=== PATIENT | female | born 1960 | race Caucasian/White ===

== ENCOUNTER 2019-04-22 11:06 | Observation (INO) | payer BC ==
[2019-04-23 10:13] VITALS: BP 89/47; TEMP 97.9; O2SAT 97
== END 2019-04-23 11:30 | disposition home or self-care (01) ==
LOC: ER 11:06 → MS 14:54
PROVIDERS: ADMIT Nurse Practitioner Family; ATTEND Nurse Practitioner Acute Care
DX: I95.1 Orthostatic hypotension (principal); R71.8 Other abnormality of red blood cells; E53.8 Deficiency of other specified B group vitamins; E86.0 Dehydration; E87.8 Other disorders of electrolyte and fluid balance, not elsewhere classified; N39.0 Urinary tract infection, site not specified; B96.89 Other specified bacterial agents as the cause of diseases classified elsewhere; F17.210 Nicotine dependence, cigarettes, uncomplicated; E87.1 Hypo-osmolality and hyponatremia; E87.6 Hypokalemia; E83.42 Hypomagnesemia; I27.20 Pulmonary hypertension, unspecified; I10 Essential (primary) hypertension; F32.9 Major depressive disorder, single episode, unspecified; Z79.899 Other long term (current) drug therapy
CPT/HCPCS: 96361; 96366 ×2; 96367; 96365; 96368; 96375; 96376; 96372; J7611; J0696 ×2; J3420; J1100; J2405; J7040; J7030 ×3; J3411; J1650; J3475; J3480; J7050 ×2; 80048; 80053; 87086; 36415 ×5; 82746; 87077; 87186; 81001; 80076; 85025 ×2; 87040 ×2; 83735; 84443; 82607; 84484; 83605; 82533; 71046; 94640; 99406; 99285; G0378

== ENCOUNTER 2019-05-01 15:31 | Inpatient (IN) | payer BC ==
[2019-05-01] MEDS ORDERED: SODIUM CHLORIDE 0.9% 1000ML 1,000 ML IVS ONE ×2 (15:39→17:15)
--- NOTE | 2019-05-01 16:13 | RAD ---
EXAM DESCRIPTION: Chest,1 View CLINICAL HISTORY: hypotension COMPARISON: April 22, 2019 FINDINGS: The cardiomediastinal silhouette is unremarkable. There is no airspace consolidation or pleural effusion. The bronchovascular markings are within normal limits, and the lungs are not hyperinflated. There is no pneumothorax or acute fracture. Postoperative changes in the left clavicle. IMPRESSION: Negative exam. Electronically signed by: Henry Sanders MD 05/01/2019 4:10 PM CDT
--- NOTE | 2019-05-01 16:17 | CT ---
EXAM DESCRIPTION: Head CLINICAL HISTORY: 58 years Female, hypotension COMPARISON: None. TECHNIQUE: Axial images are obtained from the skull base to the vertex without intravenous contrast with images viewed on bone and brain windows. Coronal and sagittal reformations were provided. This exam was performed according to our departmental dose-optimization program, which includes automated exposure control, adjustment of the mA and/or kV according to patient size and/or use of iterative reconstruction technique. FINDINGS: Brain Parenchyma, ventricles, meninges, and extra-axial spaces: Moderate frontal predominant cerebral atrophy. Mild white matter hypodensities in both cerebral hemispheres are nonspecific but likely relate to ischemic small vessel disease. No acute intracranial hemorrhage. No abnormal extra-axial fluid collections are present. No mass effect or herniation present. Vascular Structures: No hyperdense arteries or veins. Calvarium, paranasal sinuses, mastoids, and orbits: Calvarium is intact. Mild inflammation in the inferior maxillary sinuses. Remaining paranasal sinuses and mastoid vessels are clear. Orbits are unremarkable. IMPRESSION: 1. No acute intracranial abnormality. 2. Senescent changes. 3. Mild maxillary sinus disease. Electronically signed by: Joshua Caruso MD 05/01/2019 4:15 PM CDT
[2019-05-01] MEDS ORDERED: MAGNESIUM SULFATE PREMIX 4GM 4 GM in PREMIX BAG 1 BAG IVPB ONE (16:18)
[2019-05-01] MEDS ORDERED: POTASSIUM CHLORIDE ELIXIR 20 MEQ/15 ML UD PO ONE (16:18)
[2019-05-01] MEDS ORDERED: MAGNESIUM SULFATE PREMIX 4GM 50 ML IVPB ONE (16:27)
--- NOTE | 2019-05-01 18:15 | CT ---
EXAM DESCRIPTION: CTA Chest CLINICAL HISTORY: 58 years Female elevated ddimer, persistent hypotension COMPARISON: None TECHNIQUE: Images were obtained in axial, sagittal, and coronal planes. Intravenous contrast was administered. 3-D MIP imaging was performed in axial, sagittal, and coronal planes. Coronal oblique images also submitted. This exam was performed according to our departmental dose-optimization program which includes use of Automated Exposure Control, adjustment of the mA and/or kV according to patient size and/or use of iterative reconstruction technique. FINDINGS: No filling defects pulmonary arteries bilaterally. No aortic dissection or dilatation. No adenopathy. No pericardial or pleural effusions bilaterally. No lung parenchymal infiltrates or nodules seen. No pneumothorax. No acute osseous abnormality. Mild dextroscoliosis thoracic spine. Decreased attenuation involving the liver consistent with marked fatty change. Electrodes subcutaneous fat posterior lateral left hemithorax. IMPRESSION: No evidence for pulmonary embolus. No aortic dissection or dilatation. No infiltrates bilaterally. Marked fatty change involving. Electronically signed by: Kathy Singh MD 05/01/2019 6:12 PM CDT
[2019-05-01] MEDS ORDERED: DEXAMETHASONE 4 MG TAB PO ONE (18:16)
[2019-05-01] MEDS ORDERED: CIPROFLOXACIN 500 MG TAB PO ONE (18:17)
--- NOTE | 2019-05-01 18:22 | ED.PDOC ---
History of Present Illness - General Chief Complaint: General Stated Complaint: LOW BP AT MD OFFICE AND PASSED OUT Time Seen by Provider: 05/01/19 15:37 Source: patient Exam Limitations: no limitations - History of Present Illness Initial Comments: the patient is a 58-year-old female presenting to the emergency room secondary to a syncopal episode at her primary care doctor's office. The patient has been having gastroenteritis symptoms of diarrhea and some intermittent nausea and vomiting for the past 4 days. She was recently admitted for hypotension and did have a random cortisol that came back as low during that visit. She is not having any fever. She feels weak and tired and dizzy. She didn't pass out in the primary care doctor's office. Blood pressures over there were 70s over palp. Blood pressures over here were 70s over 40s upon arrival. The patient has not gone up or had a diarrhea episode since her arrival here. No fever. She also has a history of a macrocytosis of uncertain origin. Timing/Duration: 1 week Severity: severe Improving Factors: nothing Worsening Factors: nothing Associated Symptoms: diaphoresis, loss of appetite, malaise, syncope, weakness Allergies/Adverse Reactions: Allergies NO KNOWN ALLERGY Allergy (Verified 05/01/19 16:02) Home Medications: Ambulatory Orders Citalopram Hydrobromide [Citalopram] 20 mg PO DAILY 04/22/19 Review of Systems - Review of Systems Constitutional: States: malaise, weakness EENTM: States: no symptoms reported Respiratory: States: no symptoms reported Cardiology: States: syncope Gastrointestinal/Abdominal: States: diarrhea, nausea, vomiting Genitourinary: States: no symptoms reported Musculoskeletal: States: no symptoms reported Skin: States: no symptoms reported Neurological: States: tremors Endocrine: States: no symptoms reported All other Systems: No Change from Baseline Past Medical History (General) - Patient Medical History Hx Seizures: No Hx Stroke: No Hx Asthma: No Hx of COPD: Yes Hx Cardiac Disorders: No Hx Congestive Heart Failure: No Hx Pacemaker: No Hx Hypertension: Yes - TAKEN OFF MEDICATIONS FOR HBP Hx Diabetes: No Hx Cancer: No Hx Hepatitis C: No Hx MRSA: No - Vaccination History Hx Tetanus, Diphtheria Vaccination: No Hx Influenza Vaccination: No Hx Pneumococcal Vaccination: No Immunizations Up to Date: No - Social History Hx Tobacco Use: Yes Hx Alcohol Use: Yes - OCC Hx Substance Use: No Hx Substance Use Treatment: No Hx Depression: Yes Hx Physical Abuse: No Hx Emotional Abuse: No - Female History Patient is a Female of Child Bearing Age (10 -59 yrs old): No Family Medical History - Family History Mother Family History: No Known Living Status: Still Living Physical Exam - Physical Exam General Appearance: Alert, Ill Appearing, Other - pale Eye Exam: bilateral normal Ears, Nose, Throat: hearing grossly normal, normal ENT inspection, normal pharynx Neck: full range of motion, supple Respiratory: lungs clear, normal breath sounds, no respiratory distress, no accessory muscle use Cardiovascular/Chest: normal peripheral pulses, no edema, tachycardia - mild Peripheral Pulses: radial,right: 2+, radial,left: 2+, dorsalis pedis,right: 2+, dorsalis pedis,left: 2+ Gastrointestinal/Abdominal: non tender, soft Rectal Exam: deferred Back Exam: no CVA tenderness, no vertebral tenderness Extremity: normal range of motion, non-tender, normal inspection, no pedal edema, normal capillary refill 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 Progress - Progress Progress: 05/01/19 18:23 the patient is a 58-year-old female with a syncopal episode and hypotension at her primary care doctor's office after a week's worth of what appears to be a gastroenteritis. The patient's blood pressures have improved with 2 L of IV fluids. There is some question of adrenal insufficiency with this patient so she is given 4 mg of oral dexamethasone. TSH is elevated significantly since last week and will bear following. Her free T4 levels were within normal limits. Magnesium level was markedly low at 1. She has been given 4 g of magnesium sulfate and this will need repeating. Additionally she does have hypokalemia which she has had a supplemental dose of here and this will wire following as well. She needs a repeat urinalysis to confirm clearance of the urinary tract infection. She also has a C. difficile studythat she needs to collect on her stool for the diarrhea. For now she is receiving 1 dose of oral ciprofloxacin for the gastroenteritis. She may benefit in the short- term from acid reducing medications. Admit for continuation of care for hypotension, syncope, gastroenteritis, hypomagnesemia, hypokalemia. Critical care time spent on this patient is 40 minutes excluding otherwise billable procedures. - Results/Orders Results/Orders: chest x-ray shows mild cardiomegaly. Head CT is negative for acute pathology. CTA of the chest failed to demonstrate any acute pathology. Laboratory Tests 05/01/19 05/01/19 05/01/19 14:54 14:54 14:54 WBC 14.2 H RBC 2.91 L Hgb 12.3 Hct 36.5 MCV 125.4 H MCH 42.3 H MCHC 33.7 RDW 16.8 H Plt Count 336 MPV 8.3 Absolute Neuts (auto) 12.00 H Absolute Lymphs (auto) 1.50 Absolute Monos (auto) 0.60 Absolute Eos (auto) 0.10 Absolute Basos (auto) 0.10 Neutrophils % 84.3 H Lymphocytes % 10.4 L Monocytes % 3.9 Eosinophils % 0.7 L Basophils % 0.7 PT 10.8 INR 1.08 PTT (SP) 21.9 D-Dimer, Quantitative 0.62 H* Sodium 133 L Potassium 3.2 L Chloride 96 L Carbon Dioxide 22 Anion Gap 18.2 H BUN 14 Creatinine 1.09 BUN/Creatinine Ratio 12.8 Random Glucose 131 H Serum Osmolality 268.7 L Lactic Acid Calcium 7.9 L Magnesium 1.0 L Total Bilirubin 1.5 H AST 61 H ALT 25 Alkaline Phosphatase 99 Creatine Kinase 24 L CK-MB (CK-2) 0.5 CK-MB (CK-2) % Not Reportable Troponin I < 0.02 B-Natriuretic Peptide 48.1 Serum Total Protein 6.7 Albumin 3.1 L Globulin 3.6 H Albumin/Globulin Ratio 0.9 L TSH 8.23 H Free T4 Free T3 pg/mL 05/01/19 05/01/19 05/01/19 15:45 15:45 15:45 WBC RBC Hgb Hct MCV MCH MCHC RDW Plt Count MPV Absolute Neuts (auto) Absolute Lymphs (auto) Absolute Monos (auto) Absolute Eos (auto) Absolute Basos (auto) Neutrophils % Lymphocytes % Monocytes % Eosinophils % Basophils % PT INR PTT (SP) D-Dimer, Quantitative Sodium Potassium Chloride Carbon Dioxide Anion Gap BUN Creatinine BUN/Creatinine Ratio Random Glucose Serum Osmolality Lactic Acid 2.2 Calcium Magnesium Total Bilirubin AST ALT Alkaline Phosphatase Creatine Kinase CK-MB (CK-2) CK-MB (CK-2) % Troponin I B-Natriuretic Peptide Serum Total Protein Albumin Globulin Albumin/Globulin Ratio TSH Free T4 1.24 Free T3 pg/mL 3.64 Departure - Departure Clinical Impression: Gastroenteritis, Hypomagnesemia, Hypokalemia, Adrenal insufficiency Syncope Qualifiers: Syncope type: unspecified Qualified Code(s): R55 - Syncope and collapse Hypotension Qualifiers: Hypotension type: hypotension due to hypovolemia Qualified Code(s): I95.89 - Other hypotension; E86.1 - Hypovolemia Disposition: Admit Patient Departure Forms: ED Discharge - Pt. Copy, Patient Portal Self Enrollment Referrals: Rachid Mckee MD [Primary Care Provider] - 1-2 Weeks Home Medications: Ambulatory Orders Citalopram Hydrobromide [Citalopram] 20 mg PO DAILY 04/22/19 Decision To Admit - Decistion To Admit Decision to Admit Reason: Medical Nature Decision to Admit Date: 05/01/19 Decision to Admit Time: 18:26
--- NOTE | 2019-05-01 20:26 | HP ---
SUPERVISING PHYSICIAN: SANDRA BAUMANN MD CHIEF COMPLAINT: Hypotension and syncopal episodes. HISTORY OF PRESENT ILLNESS: Ms. Jiménez is a 58-year-old, female patient who presented to the emergency room after she had a syncopal episodes at Dr. Mckee office. She was being seen in followup from previous hospitalization last week. The patient had been having some gastritis type symptoms and diarrhea with some intermittent nausea and vomiting for the last 4 days. She had recently been admitted to the hospital for hypotension and was discharged for treatment of urinary tract infection on antibiotics to include Ciprofloxacin. In the Emergency Room, she did not have any fever. She did note she was feeling week, tired and dizzy. Blood pressure in Dr. Mckee office reported to be in the 70s by palpation. Blood pressure on initial presentation to the Emergency Room showed 70s/40s. Laboratory studies showed she did have a significant white count of 14,200 with hemoglobin of 12.3, hematocrit 36.5, MCV elevated at 125, platelet count 336,000. Differential did show a left shift. Coagulation studies showed a normal PT/PTT. D-dimer was elevated at 0.62. Chemistries showed a low sodium of 133, potassium down to 3.2, anion gap elevated at 18.2 with glucose of 131 and lactic acid of 2.2. Magnesium was low at 1.0 with a slightly elevated bilirubin at 1.5 as well as AST up to 61. Troponin was less than 0.02. Urinalysis showed microscopic revealed 5 to 10 WBCs, 0 to 1 RBCs, 5 to 10 epithelials with a rare bacteria, rare yeast. She was given 2 liters of fluid in the Emergency Room as well as C-diff was collected which showed to be negative. She did stabilize in regards to her vital signs and now is going to be admitted for further evaluation and treatment of questionable infectious diarrhea with associated hypotension. She was admitted in stable condition. Her is having the same similar symptoms of nausea and vomiting and diarrhea. Prior to admission she had a noted elevated D-dimer and this was followed up with a CT of the chest without any acute findings of pulmonary embolus. . PAST MEDICAL HISTORY: 1. Hypotension but currently having been taken off her MATHEW and beta argelia due to hypotension. 2. Depression. PAST SURGICAL HISTORY: 1. Repair of fractured left humerus at age 18. 2. Left clavicle repair at age 43. CURRENT MEDICATIONS: 1. Citalopram 20 mg daily. ALLERGIES: No known drug allergies. FAMILY HISTORY: Family medical history is unknown. Mother in her 80s from hypertension and complications. She has one brother who in the recent months at age 70 from pulmonary embolism. He also had Alzheimer's dementia. SOCIAL HISTORY: The patient is a homemaker. She is . She has no children. She does currently smoke tobacco in the form of cigarettes up to a pack a day. She notes just rare to occasional alcohol usage and no illicit drugs. REVIEW OF SYSTEMS: CONSTITUTIONAL: Positive for general malaise, fatigue. She denies any fevers, chills. HEENT: Negative for sore throats, earaches, nasal congestion, vision changes, headaches. RESPIRATORY: Denies shortness of breath, coughing, wheezing. CARDIOVASCULAR: Positive syncopal episode as noted in history of present illness with hypotension. Denies chest pain, palpitations. GASTROINTESTINAL: As noted in history of present illness. Positive for nausea, vomiting and persistent diarrhea, 2 to 4 episodes daily for the last 4 days. GENITOURINARY: Negative for dysuria, hematuria, polyuria. MUSCULOSKELETAL: Denies joint pain, joint swelling. SKIN: Denies any unexplained bleeding, unexplained moles, rashes or lesions. NEUROLOGIC: Denies headaches, numbness, ataxia, seizures. She has had syncopal episodes in the past week and just before admission but denies any other focal motor deficits. PHYSICAL EXAMINATION: VITAL SIGNS: Initial vital signs in the Emergency Room showed temperature of 96.9, pulse 117, blood pressure initially 77/63, respirations 18. Saturation 95% on room air. After fluid challenge, 2 liters, she did show an increase in blood pressure of 121/86 with heart rate decreasing to 95. Admission weight 94.4 kg. GENERAL: The patient appeared to be in no acute distress at time of admission. She is resting comfortably and alert. HEENT: Tympanic membranes clear bilaterally. Oropharynx is pink with dry mucosal membranes. No rashes or lesions. NECK: Supple, nontender with full range of motion. No jugular venous distention noted. RESPIRATORY: Lungs clear to auscultation bilaterally without any rhonchi, wheezes or rales. CARDIOVASCULAR: Regular rate and rhythm without any appreciable murmurs, gallops, or rubs. She was showing to be mildly tachycardiac on the monitor. ABDOMEN: Obese, but soft, nontender. Positive bowel sounds. BACK: No CVA tenderness or vertebral tenderness. NEUROLOGIC: Cranial nerves II-XII are grossly intact. Facial features were symmetrical. Extraocular movements within normal limits. No notable nystagmus and she was alert and oriented x 3. SKIN: Pale but warm and dry. No lesions or rashes were noted. LABORATORY: White count 14,200 with hemoglobin 12.3 and hematocrit 36.5. Platelet count at 336,000, differential does show a left shift and her RBC indices indicated a microcytosis. PT 10.8, INR 1.08, PTT 21.9, D-dimer 0.62. Chemistries showed sodium low at 133, potassium down at 3.2, anion gap elevated at 18.2 but lactic acid was normal at 2.2. Liver functions were showing some slight elevation of the bilirubin at 1.5, AST up to 61, magnesium low at 1.0. TSH was showing elevation at 8.23 with previous TSH on 04/22/19 being at 3.89. Free T4 was 1.24 and Free T3 was 3.64, all within normal limits. Troponin was less than 0.02. RADIOLOGY: She had CTA of the chest and per radiology interpretation showed no evidence of pulmonary embolus, no aortic dissection or dilation, no infiltrate. She also had a chest x-ray that showed negative exam per radiology interpretation. This was followed up with an abdominal pelvic CT that was pending at time of admission. Her EKG in the Emergency Room showed sinus tachycardia without any evidence of T-wave inversions or elevation. ASSESSMENT: 1. Hypotension with a syncopal episode, uncertain etiology. 2. Persistent diarrhea with associated nausea and vomiting, uncertain etiology. 3. Metabolic acidosis as noted with an elevated anion gap probably due to persistent diarrhea with patient showing a leukocytosis. 4. History of hypertension but currently off all medications and showing to be hypotensive. 5. Depression, on Citalopram. 6. Dehydration secondary to persistent diarrhea. 7. Electrolyte imbalance to include a severe hypomagnesemia as well as hypokalemia, hyponatremia. 8. Elevated total bilirubin and AST, uncertain etiology, likely due to some underlying dehydration. 9. Elevated TSH with normal T4 with patient having no history of previous hypothyroidism and having a normal TSH within the last 2 weeks. PLAN: Ms. Jiménez is going to be admitted to the hospital for ongoing treatment of her hypotension with fluids to hopefully correct underlying dehydration. I have ordered stool studies to further rule out any other infectious source. She was given a single dose of Diflucan and ciprofloxacin in the Emergency Room. Will continue with Flagyl and based on further findings, consideration for other antibiotics. She was given 4 grams of magnesium in the Emergency Room. We will continue to monitor this closely with repeat laboratory studies and replace as needed. Will go ahead and start her on some IV fluids to help correct the underlying electrolyte imbalance. She will be on DVT prophylaxis as per protocol. Again, we will follow stool studies to include C diff, O&P, leukoesterase and occult blood. At this point, antibiotics will be continued with Flagyl, again waiting for further testing with consideration for additional antibiotics after reassessment in the morning. Will anticipate length of stay to be 2 to 3 days. Until she can transition back to outpatient management, we will continue to monitor and treat as needed. #[id number] [facility]
[2019-05-01] MEDS ORDERED: SODIUM CHLORIDE 0.9% (FLUSH) 10 ML SYG IV PRN (20:33)
[2019-05-01] MEDS ORDERED: ACETAMINOPHEN SUPPOSITORY 650 MG PR PRN (20:33)
[2019-05-01] MEDS ORDERED: ALUM & MAG HYDROX-SIMETHICONE 30 ML UD PO PRN (20:33)
[2019-05-01] MEDS ORDERED: ONDANSETRON INJ 4 MG/2 ML VIAL IV PRN (20:33)
[2019-05-01] MEDS ORDERED: raNITIdine HCL INJ 50 MG in SODIUM CHLORIDE 0.9% 50ML 50 ML IVPB ONE (20:38)
[2019-05-01] MEDS ORDERED: SODIUM CHLORIDE 0.9% 50ML 50 ML ONE (21:11)
[2019-05-01] MEDS ORDERED: raNITIdine HCL INJ 25 MG/ML VIAL ONE (21:11)
[2019-05-01] MEDS: SODIUM CHLORIDE 0.9% (FLUSH) 10 ML SYG IV SCH (21:15)
[2019-05-01] MEDS: IV SET AND CAP CHANGE INJ INJ SCH (21:16)
[2019-05-01] MEDS: KCL 20 MEQ/NS 1,000 ML IVS PRN (22:00)
[2019-05-02] MEDS: KCL 20 MEQ/NS 1,000 ML IVS PRN ×3 (05:34→18:35)
[2019-05-02] MEDS: SODIUM CHLORIDE 0.9% (FLUSH) 10 ML SYG IV SCH ×2 (10:04→20:29)
--- NOTE | 2019-05-02 12:35 | CT ---
EXAM DESCRIPTION: CT abdomen and pelvis with contrast CLINICAL HISTORY: 2 weeks of nausea, vomiting and diarrhea COMPARISON: None Available. TECHNIQUE: Spiral CT with multiplanar reformatted images. Intravenous iodinated nonionic contrast This exam was performed according to our departmental dose-optimization program, which includes automated exposure control, adjustment of the mA and/or kV according to patient size and/or use of iterative reconstruction technique. FINDINGS: Scattered diverticula of the descending and sigmoid colon. Wall thickening of the sigmoid colon over a long segment. No surrounding inflammation. No ruptured diverticulum or abscess. No mass lesion. No mass lesion or inflammatory process in the stomach or small intestine. Normal terminal ileum and appendix Diffuse fatty infiltration of the liver. Hepatomegaly. No focal abnormality. Normal spleen, pancreas, adrenal glands and kidneys. Multilevel degenerative change in the spine with scoliosis. No acute bony abnormality IMPRESSION: Descending and sigmoid colon diverticulosis. Long segment wall thickening of the sigmoid colon consistent with colitis, infectious or inflammatory. Hepatomegaly and marked diffuse fatty infiltration of the liver Electronically signed by: Eugene Deluna MD 05/02/2019 12:33 PM CDT
[2019-05-02] MEDS ORDERED: metroNIDAZOLE IV PREMIX 500MG 100 ML IVPB ONE ×2 (12:36→19:45)
[2019-05-02] MEDS: metroNIDAZOLE IV PREMIX 500MG 500 MG in PREMIX BAG 1 BAG IVPB SCH ×2 (12:55→19:48)
[2019-05-02] MEDS ORDERED: SODIUM CHLORIDE 0.9% 250ML 250 ML ONE (13:52)
[2019-05-02] MEDS ORDERED: AZITHROMYCIN IV 500 MG VIAL IVPB ONE (13:53)
[2019-05-02] MEDS: CITALOPRAM HBR 20 MG TAB PO SCH (14:08)
[2019-05-02] MEDS: AZITHROMYCIN IV 500 MG in SODIUM CHLORIDE 0.9% 250ML 250 ML IVPB SCH (14:35)
[2019-05-02] MEDS: VANCOMYCIN ORAL LIQUID 2,000 MG/80 ML BOTTLE PO SCH ×2 (15:00→17:45)
[2019-05-02] MEDS: ENOXAPARIN SODIUM 40 MG/0.4 ML SYG SUBCU SCH (20:40)
[2019-05-03] MEDS: VANCOMYCIN ORAL LIQUID 2,000 MG/80 ML BOTTLE PO SCH ×4 (00:04→19:16)
[2019-05-03] MEDS ORDERED: metroNIDAZOLE IV PREMIX 500MG 100 ML IVPB ONE ×3 (01:45→19:22)
[2019-05-03] MEDS: metroNIDAZOLE IV PREMIX 500MG 500 MG in PREMIX BAG 1 BAG IVPB SCH ×3 (03:03→19:26)
[2019-05-03] MEDS: KCL 20 MEQ/NS 1,000 ML IVS PRN (03:13)
[2019-05-03] MEDS ORDERED: INSULIN LISPRO 100 UNITS/ML PEN SUBCU ONE (05:32)
--- NOTE | 2019-05-03 09:16 | PN ---
DATE: 05/02/19 SUPERVISING PHYSICIAN: Mo Lester MD SUBJECTIVE: The patient's blood pressure has been fairly stable since admission. She did show an elevation in white count. She has not had any nausea and vomiting and actually is requesting that we advance her diet. She continues to have multiple stools and we are doing studies on those. She has had no chest pain or shortness of breath. OBJECTIVE: VITAL SIGNS: Temperature 97.4, pulse 111, blood pressure 99/66, respirations 16, saturation 95% on room air. I&O: weight 90.4 with positive balance. GENERAL: The patient is resting comfortably and appears to be in no acute distress. CHEST: Lungs clear to auscultation. HEART: Regular rate and rhythm. ABDOMEN: Soft, non-tender, positive bowel sounds that are hyperactive. EXTREMITIES: No edema. NEUROLOGIC: She is alert, and oriented. LABORATORY: Shows increase in white count up to 19,000, hemoglobin0 10.8, hematocrit 31.9 with platelet count of 249,000, differential does continue to show a left shift. Chemistries this morning showed sodium of 132, BUN 16, creatinine 1.03. Repeat lactic acid 1.0. Troponin less than 0.02. CKMB 22, AST 57 which is down from yesterday at 61. Stool occult blood negative x1 specimen. O&P pending. Urine drug screen negative yesterday, magnesium 1.9. MICROBIOLOGY: Stool leukocytes positive, first C-difficile negative. Blood cultures are pending. RADIOLOGY: Abdominal /pelvic CT this morning with contrast per radiology interpretation shows descending sigmoid colon, diverticulitis with a long wall thickening of the sigmoid colon consistent with colitis and infectious or inflammatory process but no ruptured diverticulum or abscess. No mass lesions. No surrounding inflammation. The spleen, pancreas, adrenal glands, kidneys were noted to be normal, no focal abnormalities. There was diffuse fatty infiltration of the liver with some hepatomegaly. ASSESSMENT: 1. Hypotension with a syncopal episode, uncertain etiology but likely due to underlying dehydration from diarrhea. 2. Persistent diarrhea with associated nausea and vomiting, uncertain etiology, possibly due to acute colitis. At this point it is uncertain if it is infectious or inflammatory response. 3. Metabolic acidosis on admission with elevated anion gap that is now back to normal levels after IV fluids, probably due to dehydration. 4. History of hypertension but currently off all medications and showing to be hypotensive, uncertain etiology. 5. Depression, on Citalopram. 6. Dehydration secondary to persistent diarrhea showing improvement with fluids. 7. Electrolyte imbalance to include a severe hypomagnesemia as well as hypokalemia, hyponatremia, levels returning to baseline with replacement. 8. Elevated total bilirubin and AST, uncertain etiology, likely due to some underlying dehydration, levels returning to baseline. 9. Elevated TSH with normal T4 with patient having no history of previous hypothyroidism and having a normal TSH within the last 2 weeks. PLAN: I did discuss the patient's case with Dr. Mckee. At this point, it is uncertain if we are dealing with an infectious process. He was actually able to rune [employer] test but all things tested negative but the patient continues to have diarrhea. Given that she has had multiple episodes and been on antibiotics, we will go ahead and treat her for questionable C-diff with vancomycin orally as well as treat her with some azithromycin 500 mg IV for three doses and continue with Flagyl. We will continue to follow her stool workup. We will continue to monitor labs to ensure they are staying stable. She remains on DVT prophylaxis as per protocol. Hopefully, we will be able to discharge later this weekend and if not, maybe by Sunday, again, awaiting stool cultures and further workup to insure the patient' is remaining stable and her symptoms are resolving. Until the, we will continue to monitor and treat as needed. #[id number] [facility]
[2019-05-03] MEDS: SODIUM CHLORIDE 0.9% (FLUSH) 10 ML SYG IV SCH ×2 (09:38→20:41)
[2019-05-03] MEDS: CITALOPRAM HBR 20 MG TAB PO SCH (09:39)
[2019-05-03] MEDS ORDERED: SODIUM CHLORIDE 0.9% 250ML 250 ML ONE (13:46)
[2019-05-03] MEDS ORDERED: AZITHROMYCIN IV 500 MG VIAL IVPB ONE (13:47)
[2019-05-03] MEDS: AZITHROMYCIN IV 500 MG in SODIUM CHLORIDE 0.9% 250ML 250 ML IVPB SCH (14:10)
[2019-05-03] MEDS ORDERED: SODIUM CHLORIDE 0.9% (FLUSH) 10 ML SYG IV ONE (14:45)
[2019-05-03] MEDS ORDERED: VANCOMYCIN ORAL LIQUID 2,000 MG/80 ML BOTTLE PO ONE (16:00)
--- NOTE | 2019-05-03 20:15 | PN ---
DATE: 05/03/19 SUPERVISING PHYSICIAN: Mo Lester M.D. SUBJECTIVE: The patient continues to maintain a stable blood pressure. She is no longer having any nausea and notes that her stools are returning to more of normal consistency and less diarrhea. She has had no chest pains or complaints of shortness of breath. OBJECTIVE: VITAL SIGNS: She remains afebrile with a temperature of 97.5, heart rate 100 with blood pressure 120/82, respirations 16, satting 96% on room air. I's and O's show a positive balance of 350. Weight is 93.7 kg. GENERAL: The patient is resting comfortably in bed. Appears to be in no acute distress. Visiting with her . She is alert. CHEST: Lung sounds remain clear to auscultation. HEART: Regular rate and rhythm, showing just to be slightly tachycardic on the monitor. ABDOMEN: Obese but soft, non-tender. Positive bowel sounds. EXTREMITIES: Without edema. NEUROLOGIC: She is alert and oriented times three. LABORATORY: White count continues to show decreasing and returning to baseline levels at 12.5. Hemoglobin is showing to be stable at 10 and 29.4 respective with hematocrit and platelet count is 191,000. Differential continues to show a left shift. Chemistries show improving sodium at 134, potassium is down slightly to 3.4, anion gap is still within normal limits. Carbon dioxide is a little bit low at 19 but BUN is 11, creatinine 0.65, calcium 7.6, magnesium had normalized and total bilirubin is normal at 1, but her AST is still showing some elevation. ALT and alkaline phosphatase remain within normal limits. Albumin is low at 2.4. O and Ps are pending. MICROBIOLOGY: Blood cultures are showing to be negative currently. One C-Diff was negative and again stool leukocytes were positive, but occult stools were negative. RADIOLOGY: No radiographic studies today. ASSESSMENT: 1. Hypotension with a syncopal episode, uncertain etiology but likely due to underlying dehydration from diarrhea showing to be stable with fluids. The patient is showing a decline in number of stools. 2. Persistent diarrhea with associated nausea and vomiting, uncertain etiology, possibly due to acute colitis. At this point it is uncertain if it is infectious or inflammatory response. 3. Metabolic acidosis on admission with elevated anion gap that is now back to normal levels after IV fluids, probably due to dehydration, resolved. 4. History of hypertension but currently off all medications and showing to be hypotensive, uncertain etiology. 5. Depression, on Citalopram. 6. Dehydration secondary to persistent diarrhea showing improvement with fluids, resolved with fluids. 7. Electrolyte imbalance to include a severe hypomagnesemia as well as hypokalemia, hyponatremia, levels returning to baseline with replacement, levels returning to baseline. 8. Elevated AST, uncertain etiology, possibly due to dehydration but still elevated showing some increasing levels possibly secondary to Flagyl administration. 9. Elevated TSH with normal T4 with patient having no history of previous hypothyroidism and having a normal TSH within the last 2 weeks. PLAN: At this point will continue with plan of care but will saline lock her. She is taking adequate oral intake. I did discuss with her that tomorrow morning we would draw a cortisol level and do ACTH stimulation test to evaluate for possible adrenal insufficiency. She will remain on antibiotics at this point with oral vancomycin for treatment for C-Diff concerns and azithromycin along with Flagyl. If her liver enzymes continue to increase, we may need to consider maybe either changing the Flagyl dosing or discontinue it. Hopefully will be able to have the patient stabilize on oral fluids with her blood pressure and discharge on Sunday. Until then will continue to monitor and treat as needed. [facility][id number] [facility]
[2019-05-03] MEDS: ENOXAPARIN SODIUM 40 MG/0.4 ML SYG SUBCU SCH (20:40)
[2019-05-04] MEDS: VANCOMYCIN ORAL LIQUID 2,000 MG/80 ML BOTTLE PO SCH ×4 (00:01→17:14)
[2019-05-04] MEDS ORDERED: metroNIDAZOLE IV PREMIX 500MG 100 ML IVPB ONE ×3 (02:02→19:30)
[2019-05-04] MEDS: metroNIDAZOLE IV PREMIX 500MG 500 MG in PREMIX BAG 1 BAG IVPB SCH ×3 (03:06→20:08)
[2019-05-04] MEDS ORDERED: COSYNTROPIN 0.25 MG VIAL IV ONE (05:00)
[2019-05-04] MEDS: CITALOPRAM HBR 20 MG TAB PO SCH (08:03)
[2019-05-04] MEDS: SODIUM CHLORIDE 0.9% (FLUSH) 10 ML SYG IV SCH ×2 (08:03→20:09)
[2019-05-04] MEDS ORDERED: SODIUM CHLORIDE 0.9% 250ML 250 ML ONE (12:27)
[2019-05-04] MEDS ORDERED: AZITHROMYCIN IV 500 MG VIAL IVPB ONE (12:27)
[2019-05-04] MEDS: AZITHROMYCIN IV 500 MG in SODIUM CHLORIDE 0.9% 250ML 250 ML IVPB SCH (12:30)
--- NOTE | 2019-05-04 13:00 | PN ---
DATE: 05/04/19 SUPERVISING PHYSICIAN: Mo Lester M.D. SUBJECTIVE: The patient is continuing to show stable blood pressures. Her nausea is no longer present and she is now having near normal bowel movements. She did have ATCH inhalation therapy this morning, however, those results will not be available until at least Sunday or Sunday. OBJECTIVE: VITAL SIGNS: She is now showing some slight hypertension with temperature of 97.5, blood pressure 132/90, showing 96% saturation on room air. I's and O's show a positive balance of 738 with 1790 in and 1052 out. Weight is 95.7 kg. GENERAL: The patient just finished ambulating in the hallway. She is alert and shows to be in no acute disease. CHEST: Lung sounds remain clear to auscultation. HEART: Regular rate and rhythm. ABDOMEN: Obese but soft, non-tender. Positive bowel sounds. EXTREMITIES: Without edema. NEUROLOGIC: She is alert and oriented times three. LABORATORY: White count now has normalized at 7,800. Hemoglobin and hematocrit still show a little decrease at 9.8 and 20.8 respectively with a continued macrocytosis and platelet count at 189,000. Chemistries show normalized sodium this morning at 136, potassium just slightly low but is up from yesterday at 3.5. Carbon dioxide is down to 20, near normal levels with low anion gap and BUN at 8, creatinine 0.47, calcium 7.8, albumin 2.5. Total bilirubin 0.7, AST is showing some return to baseline levels, is down to 106 compared to 185 yesterday. O&P pending. Hepatitis panel is pending.. MICROBIOLOGY: Blood cultures remain negative. RADIOLOGY: No additional radiographic studies.. ASSESSMENT: 1. Hypotension with a syncopal episode, uncertain etiology but likely due to underlying dehydration from diarrhea showing to be stable with fluids. The patient is showing a decline in number of stools. 2. Persistent diarrhea with associated nausea and vomiting, uncertain etiology, possibly due to acute colitis. At this point it is uncertain if it is infectious or inflammatory response. 3. Metabolic acidosis on admission with elevated anion gap that is now back to normal levels after IV fluids, probably due to dehydration, resolved. 4. Anemia with a macrocytosis, uncertain etiology, serum folate was low at 1.59. 5. History of hypertension but currently off all medications and showing to be hypotensive, uncertain etiology with B12 levels on last visit showing to be within normal limits. 6. Depression, on Citalopram. 7. Dehydration secondary to persistent diarrhea showing improvement with fluids, resolved with fluids. 8. Electrolyte imbalance to include a severe hypomagnesemia as well as hypokalemia, hyponatremia, levels returning to baseline with replacement, levels returning to baseline. 9. Elevated AST, uncertain etiology, possibly due to dehydration but still elevated showing some increasing levels possibly secondary to Flagyl administration. 10. Elevated TSH with normal T4 with patient having no history of previous hypothyroidism and having a normal TSH within the last 2 weeks. PLAN: Will continue with antibiotic at this point. She seems to be responding well to oral Vancenase, azithromycin, which should finish today as well as Flagyl. She did have ACTH stimulation test with baseline cortisol levels drawn this morning. Again, those won't be available probably until she is discharged. She has shown a little bit of hypertension now but it was corrected after the ACTH stimulation test. We will continue to follow those blood pressures. Hopefully, we will be able to discharge either later today or tomorrow morning. Until the, we will continue to monitor and treat as necessary. [facility][id number] [facility]
[2019-05-04] MEDS: IV SET AND CAP CHANGE INJ INJ SCH (20:09)
[2019-05-04] MEDS: ENOXAPARIN SODIUM 40 MG/0.4 ML SYG SUBCU SCH (20:09)
[2019-05-05] MEDS ORDERED: metroNIDAZOLE IV PREMIX 500MG 100 ML IVPB ONE (00:11)
[2019-05-05] MEDS: VANCOMYCIN ORAL LIQUID 2,000 MG/80 ML BOTTLE PO SCH ×2 (00:14→06:01)
[2019-05-05] MEDS: metroNIDAZOLE IV PREMIX 500MG 500 MG in PREMIX BAG 1 BAG IVPB SCH (03:13)
[2019-05-05] MEDS: SODIUM CHLORIDE 0.9% (FLUSH) 10 ML SYG IV SCH (08:05)
[2019-05-05] MEDS: CITALOPRAM HBR 20 MG TAB PO SCH (08:05)
[2019-05-05] MEDS ORDERED: VANCOMYCIN ORAL LIQUID 2,000 MG/80 ML BOTTLE PO ONE (09:00)
[2019-05-05 09:34] VITALS: BP 117/87; TEMP 97.3; O2SAT 97
--- NOTE | 2019-05-06 08:35 | DS ---
SUPERVISING PHYSICIAN: Rachid Mckee MD DISCHARGE DIAGNOSIS: 1. Hypotension with a syncopal episode, uncertain etiology but likely due to underlying dehydration from diarrhea showing to be stable with fluids. The patient is showing a decline in number of stools. 2. Persistent diarrhea with associated nausea and vomiting, uncertain etiology, possibly due to acute colitis. At this point it is uncertain if it is infectious or inflammatory response. 3. Metabolic acidosis on admission with elevated anion gap that is now back to normal levels after IV fluids, probably due to dehydration, resolved. 4. Anemia with a macrocytosis, uncertain etiology, serum folate was low at 1.59. 5. History of hypertension but currently off all medications and showing to be hypotensive, uncertain etiology with B12 levels on last visit showing to be within normal limits. 6. Depression, on citalopram. 7. Dehydration secondary to persistent diarrhea showing improvement with fluids, resolved with fluids. 8. Electrolyte imbalance to include a severe hypomagnesemia as well as hypokalemia, hyponatremia, levels returning to baseline with replacement, levels returning to baseline. 9. Elevated AST, uncertain etiology, possibly due to dehydration but still elevated showing some increasing levels possibly secondary to Flagyl administration. 10. Elevated TSH with normal T4 with patient having no history of previous hypothyroidism and having a normal TSH within the last 2 weeks. HISTORY OF PRESENT ILLNESS: This is a 58-year-old, female patient who came to the emergency room after she had a syncopal episode at Dr. Mckee' office. She was being seen in followup from previous hospitalization. The patient had been having some gastritis type symptoms and diarrhea with some intermittent nausea and vomiting for 4 days. She had been admitted to the hospital for hypotension and was discharged for treatment of urinary tract infection on antibiotics to include ciprofloxacin. In the Emergency Room, she did not have a fever, but she had been feeling week, tired and dizzy. Blood pressure in Dr. Mckee' office was in the 70s by palpation. Blood pressure on initial presentation to the Emergency Room showed 70s/40s. Laboratory studies showed she did have a significant white count of 14,200 with hemoglobin of 12.3, hematocrit 36.5, MCV elevated at 125, platelet count 336,000. Differential did show a left shift. Coagulation studies showed a normal PT/PTT. D-dimer was elevated at 0.62. Chemistries showed a low sodium of 133, potassium 3.2, anion gap 18.2 with glucose of 131 and lactic acid of 2.2. Magnesium was low at 1.0 with a slightly elevated bilirubin at 1.5 as well as AST 61. Troponin was less than 0.02. Urinalysis showed microscopic revealed 5 to 10 WBCs, 0 to 1 RBCs, 5 to 10 epithelials with a rare bacteria, rare yeast. She was given 2 liters of fluid in the Emergency Room as well as stool was collected for C. difficile, which was negative. Her vital signs did stabilize. She was admitted for further evaluation and treatment of questionable infectious diarrhea with associated hypotension. It is to be noted that her did have similar symptoms of nausea, vomiting and diarrhea. She did have an elevated D-dimer and this was followed up with a CT of the chest without any acute findings of pulmonary embolus. HOSPITAL COURSE: She was given fluids. Stool studies were obtained to rule out any other infectious source. She was given a single dose of Diflucan as well as ciprofloxacin in the Emergency Room. Flagyl was continued and she was also given 4 grams of magnesium. She was also placed on DVT prophylaxis with Lovenox. Her Celexa from home and medications were re-started. She was started on oral vancomycin. She had no further nausea or vomiting. Her diet was advanced. She had a [employer] test run at [facility] on her stool that tested negative, but she continued to have persistent diarrhea. She was treated with vancomycin orally as well as Flagyl. She was taken adequate oral intake. Because she had a history of hypotension in the last several months, a cortisol level was drawn in the morning and an ACTH stimulation test was done to evaluate for possible adrenal insufficiency. Her vital signs have stabilized. She is no longer having any nausea, vomiting or diarrhea and she will be discharged home to have close followup with Dr. Mckee. LABORATORY: WBCs on admission were 14,200 and yesterday were 7,800. She came in with a hemoglobin of 12.3 and hematocrit of 36.5. Her hemoglobin and hematocrit yesterday were 9.8 and 28.8. She had a left shift on her differential on admission and her neutrophils have normalized to 60.9. Sodium is stable at 136. She did have a slightly low potassium of 3.5 with a BUN 8, creatinine 0.47. Magnesium 1.9. Serum total protein was slightly low at 5.5. Albumin 2.5. MICROBIOLOGY: Stool for occult blood was negative. Stool for O&P is pending. UDS was negative. Hepatitis panel is pending. Preliminary blood cultures show no growth. Final stool culture is unavailable. Cortisol and ACTH stimulation tests are unavailable. RADIOLOGY: Head CT shows no acute intracranial abnormality, senescent changes and mild maxillary sinus disease. Her chest x-ray shows a negative exam. Chest/thorax CTA per history of present illness. Abdomen and pelvis CT showed descending and sigmoid colon diverticulosis, long segment wall thickening of the sigmoid colon consistent with colitis, infectious or inflammatory, hepatomegaly and marked diffuse fatty infiltration of the liver. DISCHARGE PLAN: The patient will be discharged home in stable condition. She is to resume her previous diet as well as increase her activity as tolerated. She is to followup with Dr. Mckee on 05/08/19 at 9:30 AM. In addition to her home medication of Celexa, she is to continue 7 days of metronidazole and 7 days of oral vancomycin. She is to return to the hospital or followup with Dr. Mckee' office for any problems or complications. DISCHARGE MEDICATIONS: 1. Citalopram. 2. Metronidazole. 3. Vancomycin oral liquid. #[id number] [facility]
== END 2019-05-05 10:48 | disposition home or self-care (01) | DRG 641 ==
LOC: ER 15:31 → MS 20:25 → INTOOBSV 20:25 → OBSVTOIN 20:25
PROVIDERS: ADMIT Nurse Practitioner Family; ATTEND Nurse Practitioner Acute Care
PROC: B32T1ZZ Computerized Tomography (CT Scan) of Left Pulmonary Artery using Low Osmolar Contrast (ICD-10-PCS; 2019-05-01)
PROC: B32S1ZZ Computerized Tomography (CT Scan) of Right Pulmonary Artery using Low Osmolar Contrast (ICD-10-PCS; 2019-05-01)
PROC: BW211ZZ Computerized Tomography (CT Scan) of Abdomen and Pelvis using Low Osmolar Contrast (ICD-10-PCS; principal; 2019-05-02)
DX: E86.0 Dehydration (principal); E27.40 Unspecified adrenocortical insufficiency; K52.9 Noninfective gastroenteritis and colitis, unspecified; E87.2 Acidosis; D64.9 Anemia, unspecified; F32.9 Major depressive disorder, single episode, unspecified; E83.42 Hypomagnesemia; E87.6 Hypokalemia; E87.1 Hypo-osmolality and hyponatremia; R74.8 Abnormal levels of other serum enzymes; E03.9 Hypothyroidism, unspecified; F17.210 Nicotine dependence, cigarettes, uncomplicated; Z79.899 Other long term (current) drug therapy

== ENCOUNTER → 2020-07-22 | Outpatient (CLI) | payer BC, SELFPAY ==
--- NOTE | 2020-07-23 10:03 | MRI ---
EXAM DESCRIPTION: Lumbar Spine w/o Contrast CLINICAL HISTORY: SPINAL STENOSIS LUMBAR REGION WITH NEUROGENIC CLAUDICATION COMPARISON: Sagittal bone window images from CT abdomen and pelvis May 02, 2019 TECHNIQUE: MRI of the lumbar spine is performed according to our usual protocol with axial and sagittal multi sequence imaging. FINDINGS: Sagittal T2 images reveal decreased signal intensity consistent with mild desiccation of the intervertebral discs at all lumbar levels. Posterior annular bulges are not a prominent finding. No prevertebral mass or aneurysm. Lower cord and conus appear normal. Tip of the conus is behind T12-L1. Scattered small hemangiomas in the lumbar vertebral bodies. Anterior wedging at T12 appears chronic with approximately 30% loss of height anteriorly. Small Schmorl's nodes in the upper L-spine. Sagittal T1 images reveal benign marrow signal characteristics. Normal T1 signal intensity and appearance of the lower cord and conus. Sagittal STIR images are negative for marrow edema within the vertebral bodies or posterior elements. 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 Prominent epidural lipomatosis posterior to L5 and S1.. Axial T1 and T2-weighted images were obtained to evaluate the disc levels. T12-L1: Minimal posterior annular bulge with mild left posterolateral accentuation. No spinal stenosis or neural foraminal narrowing. Facets appear hypertrophic. Normal appearance of the lower cord and conus. L1-2: Minimal posterior annular bulge without spinal stenosis or neural foraminal narrowing. Facets appear mildly hypertrophic. L2-3: Mild diffuse posterior annular bulge without focal herniation. No spinal stenosis or significant neural foraminal narrowing. Facets appear normal. L3-4: Mild diffuse posterior annular bulge with bilateral lateral accentuation. No spinal stenosis. Mild bilateral neural foraminal narrowing. Facets appear degenerated with prominent spurring left more than right hand moderate bilateral ligamentum flavum thickening. No significant lateral recess compromise. L4-5: Mild diffuse posterior annular bulge with left posterior lateral accentuation. No spinal stenosis. Mild right and [id number] left neural foraminal narrowing. Marked facet hypertrophic spurring left more than right with moderate ligamentum flavum thickening narrowing left more than right subarticular recesses. No nerve root compression. L5-S1: Mild diffuse posterior annular bulge without spinal stenosis. Posterior annular tears are present measuring 7 mm in mediolateral width on the right hand 6.5 mm on the left. No associated extruded disc fragment. Mild left neural foraminal narrowing. Mild facet hypertrophic changes left more than right with mild narrowing of left subarticular recess but no nerve root compression. Upper sacrum appears intact. No retroperitoneal mass or aneurysm. IMPRESSION: Negative for spinal stenosis or acute appearing disc herniation. Multilevel facet degenerative changes. Chronic anterior wedging of T12 vertebral body. Electronically signed by: Eduardo Pavon MD 07/23/2020 10:01 AM CDT
== END ==
LOC: MRI 11:10
PROVIDERS: ATTEND Family Medicine
DX: M48.062 Spinal stenosis, lumbar region with neurogenic claudication (principal); M47.896 Other spondylosis, lumbar region; M51.84 Other intervertebral disc disorders, thoracic region